=== PATIENT | male | born 1990 | race Caucasian/White ===

== ENCOUNTER 2023-02-17 18:50 | Emergency (ER) | payer BC ==
[2023-02-17] MEDS ORDERED: Tetracaine HCl/PF 0.5% 4 ML Bottle EYEBOTH ONE (19:06)
== END 2023-02-17 21:42 | disposition home or self-care (01) ==
LOC: MW.ED 18:50
DX: T15.91XA Foreign body on external eye, part unspecified, right eye, initial encounter (principal)
CPT/HCPCS: 99283; J3490